=== PATIENT | female | born 1995 | race African-American/Black ===

== ENCOUNTER 2016-10-23 15:15 | Emergency (ER) | payer MEDICAID ==
--- NOTE | 2016-10-23 16:16 | EDPHY ---
H & P Stated Complaint: SI Time Seen by Provider: 10/23/16 15:32 HPI/ROS: CHIEF COMPLAINT: Increasing depression, suicidal ideation HISTORY OF PRESENT ILLNESS: 21-year-old female history diagnosed depression, history of suicide attempts x6 in the past, in the ER voluntarily via private vehicle complaining of increasing depression thoughts of suicide for the past 5 days. Has not been attending classes. Plan is either to lacerated her wrists or [place]. She does not own a gun or have access to a gun. She denies alcohol or drug use. Denies current suicide attempt. Denies hallucination. PRIMARY CARE PROVIDER: REVIEW OF SYSTEMS: A ten point review of systems was performed and is negative with the exception of the items mentioned in the HPI PAST MEDICAL & SURGICAL HISTORY: Depression. Prior suicide attempt. SOCIAL HISTORY: [employer] [facility] [employer] PHYSICAL EXAM (Prior to examination, patient consented to physical exam, hands were washed and my usual and customary physical exam procedures followed) 1) GENERAL: Well-developed, well-nourished, alert and oriented. Depressed, flat affect . 2) HEAD: Normocephalic, atraumatic 3) HEENT: Pupils equal, round, reactive to light bilaterally. Sclera anicteric. 4) NECK: Full range of motion, no meningeal signs. 5) LUNGS: Clear auscultation bilaterally, no wheezes, no rhonchi, no retractions. 6) HEART: Regular rate and rhythm, no murmur, no heave, no gallop. 7) ABDOMEN: No guarding, no rebound, no focal tendernessn, 8) MUSCULOSKELETAL: Moving all extremities, no focal areas of tenderness, no obvious trauma. No peripheral edema or discoloration. 9) BACK: , no visual or palpable abnormality. 10) SKIN: No rash, no petechiae. 11) Psychiatric: Patient is oriented X 3, there is no agitation. She has calmed cooperative. She has a depressed, flat affect and is tearful. DIFFERENTIAL DIAGNOSIS: no particular including but not limited to depression, sesar, psychosis, suicidal ideation, homicidal ideation - Personal History LMP (Females 10-55): 8-14 Days Ago Current Tetanus/Diphtheria Vaccine: Unsure Current Tetanus Diphtheria and Acellular Pertussis (TDAP): Unsure Tetanus Vaccine Date: < 10 YEARS - Medical/Surgical History Hx Asthma: Yes Hx Chronic Respiratory Disease: No Hx Diabetes: No Hx Cardiac Disease: No Hx Renal Disease: No Hx Cirrhosis: No Hx Alcoholism: No Hx HIV/AIDS: No Hx Splenectomy or Spleen Trauma: No Other PMH: depression anxiety ovarian cyst - Social History Smoking Status: Never smoked Constitutional: Initial Vital Signs Temperature (C) 36.8 C 10/23/16 15:16 Heart Rate 106 H 10/23/16 15:16 Respiratory Rate 16 10/23/16 15:16 Blood Pressure 109/71 10/23/16 15:16 O2 Sat (%) 96 10/23/16 15:16 O2 Delivery Mode Room Air Allergies/Adverse Reactions: No Known Allergies Allergy (Unverified 08/19/16 10:16) Home Medications: Medication Instructions Recorded Bcp 11/12/14 Ibuprofen [Motrin (*)] 800 mg PO Q6 #15 tab 08/19/16 Zoloft 08/19/16 Medical Decision Making ED Course/Re-evaluation: 4:15 p.m.: Patient in the ER voluntarily. She has been placed on M1 hold as I thinks she presents an imminent danger to herself with prior history of suicide attempt, currently endorsing suicidal ideation with plan. 8:48 p.m.: Mental health turkey pinner has evaluated the patient. Patient has contracted for safety and feels the M1 can be vacated. Patient can follow up with [facility]. Patient does not endorse suicidal homicidal ideation. - Data Points Laboratory Results: Laboratory Results 10/23/16 15:56 10/23/16 15:56 10/23/16 10/23/16 15:56 15:49 WBC 7.05 10^3/uL (3.80-9.50) RBC 4.82 10^6/uL (4.18-5.33) Hgb 14.5 g/dL (12.6-16.3) Hct 42.8 % (38.0-47.0) MCV 88.8 fL (81.5-99.8) MCH 30.1 pg (27.9-34.1) MCHC 33.9 g/dL (32.4-36.7) RDW 12.7 % (11.5-15.2) Plt Count 332 10^3/uL (150-400) MPV 9.4 fL (8.7-11.7) Neut % (Auto) 72.2 % (39.3-74.2) Lymph % (Auto) 10.2 L % (15.0-45.0) [place] % (Auto) 7.1 % (4.5-13.0) Eos % (Auto) 9.8 H % (0.6-7.6) Baso % (Auto) 0.6 % (0.3-1.7) Nucleat RBC Rel Count 0.0 % (0.0-0.2) Absolute Neuts (auto) 5.09 10^3/uL (1.70-6.50) Absolute Lymphs (auto) 0.72 L 10^3/uL (1.00-3.00) Absolute Monos (auto) 0.50 10^3/uL (0.30-0.80) Absolute Eos (auto) 0.69 H 10^3/uL (0.03-0.40) Absolute Basos (auto) 0.04 10^3/uL (0.02-0.10) Absolute Nucleated RBC 0.00 10^3/uL (0-0.01) Immature Gran % 0.1 % (0.0-1.1) Immature Gran # 0.01 10^3/uL (0.00-0.10) Sodium 139 mEq/L (134-144) Potassium 4.2 mEq/L (3.5-5.2) Chloride 102 mEq/L (97-110) Carbon Dioxide 24 mEq/l (22-31) Anion Gap 13 mEq/L (8-16) BUN 12 mg/dL (7-23) Creatinine 0.8 mg/dL (0.6-1.0) Estimated GFR > 60 Glucose 107 H mg/dL (70-100) Calcium 10.0 mg/dL (8.5-10.4) Beta HCG, Qual NEGATIVE Salicylates < 1.0 L mg/dL (2.0-20.0) Urine Opiates Screen Cancelled Acetaminophen < 10 L mcg/mL (10.0-30.0) Urine Barbiturates Cancelled Ur Phencyclidine Scrn Cancelled Ur Amphetamine Screen NEGATIVE (NEGATIVE) Ur Amphetamines Screen Cancelled U Benzodiazepines Scrn Cancelled Urine Cocaine Screen Cancelled U Marijuana (THC) Screen Cancelled Ethyl Alcohol < 10 mg/dL (0-10) Departure - Departure Disposition: Home, Routine, Self-Care Clinical Impression: Severe major depression Condition: Good Instructions: Depression (ED) Additional Instructions: Call 911 if you have thoughts of hurting yourself Referrals: [facility] [Outside] - 1 day without fail
[2016-10-23 16:27] LABS: % IMMATURE GRANULYOCYTES 0.1 % (0.0-1.1); ABSOLUTE IMMATURE GRANULOCYTES 0.01 10^3/uL (0.00-0.10); ADD DIFF? NO; ADD MORPH? NO; ADD SCAN? NO; ATYPICAL LYMPHOCYTE FLAG 10 (0-99); FRAGMENT RBC FLAG 0 (0-99); HEMATOCRIT 42.8 % (38.0-47.0); HEMOGLOBIN 14.5 g/dL (12.6-16.3); LEFT SHIFT FLG 0 (0-99); LIPEMIA HEMOLYSIS FLAG 90 (0-99); MEAN CELL HEMOGLOBIN 30.1 pg (27.9-34.1); MEAN CELL HEMOGLOBIN CONCENTR. 33.9 g/dL (32.4-36.7); MEAN CELL VOLUME 88.8 fL (81.5-99.8); MEAN PLATELET VOLUME 9.4 fL (8.7-11.7); PLATELET CLUMPS FLAG 0 (0-99); PLATELET COUNT 332 10^3/uL (150-400); RED BLOOD CELL COUNT 4.82 10^6/uL (4.18-5.33); RED CELL DISTRIBUTION WIDTH 12.7 % (11.5-15.2)
[2016-10-23 16:44] LABS: ANION GAP 13 mEq/L (8-16); CARBON DIOXIDE 24 mEq/l (22-31); CHLORIDE 102 mEq/L (97-110); CREATININE 0.8 mg/dL (0.6-1.0); ETHANOL SERUM < 10 mg/dL (0-10); GLOMERULAR FILTRATION RATE > 60; GLUCOSE 107 mg/dL (70-100); POTASSIUM 4.2 mEq/L (3.5-5.2); SALICYLATE < 1.0 mg/dL (2.0-20.0); SODIUM 139 mEq/L (134-144)
[2016-10-23 21:33] VITALS: BP 109/85; PULSE 85; RESP 18; TEMP 99; O2SAT 95
== END 2016-10-23 21:34 | disposition home or self-care (01) ==
DX: F32.2 Major depressive disorder, single episode, severe without psychotic features (principal); J45.909 Unspecified asthma, uncomplicated
CPT/HCPCS: 80305; G0480

== ENCOUNTER 2016-12-20 17:37 | Emergency (ER) | payer MEDICAID ==
[2016-12-20] MEDS ORDERED: IBUPROFEN 600 MG TAB PO ONE (17:46)
[2016-12-20] MEDS ORDERED: IBUPROFEN 200 MG TAB PO ONE (17:48)
[2016-12-20] MEDS ORDERED: NS 1,700 ML IV ONE (17:49)
--- NOTE | 2016-12-20 17:49 | EDPHY ---
H & P Stated Complaint: FLU LIKE SYMPTOMS N/V/D COUGH AND FEVER - Personal History LMP (Females 10-55): Now Current Tetanus/Diphtheria Vaccine: Yes Tetanus Vaccine Date: < 10 YEARS - Medical/Surgical History Hx Asthma: Yes Hx Chronic Respiratory Disease: No Hx Diabetes: No Hx Cardiac Disease: No Hx Renal Disease: No Hx Cirrhosis: No Hx Alcoholism: No Hx HIV/AIDS: No Hx Splenectomy or Spleen Trauma: No Other PMH: depression anxiety ovarian cyst - Social History Smoking Status: Never smoked Time Seen by Provider: 12/20/16 17:43 HPI/ROS: CHIEF COMPLAINT: flu-like symptoms x3 days HISTORY OF PRESENT ILLNESS: 21-year-old immunocompetent female, history depression, no influenza vaccination, complaining of 3 days of sore throat, myalgia, nonproductive cough, nausea without abdominal pain, no diarrhea overall flu-like symptoms. using albuterol meter dose inhaler more than usual. Denies: Nuchal rigidity, headache, photophobia, back or flank pain, urinary complaint, rash, urinary abnormality, abdominal pain. The patient would also like me to evaluate a tender right vaginal area present for the past 1 months. This is described as a tender "ball like lesion" in her right labial region. Tender to palpation. REVIEW OF SYSTEMS: A ten point review of systems was performed and is negative with the exception of the items mentioned in the HPI PAST MEDICAL & SURGICAL HISTORY: depression SOCIAL HISTORY: nonsmoker PHYSICAL EXAM (Prior to examination, patient consented to physical exam, hands were washed and my usual and customary physical exam procedures followed) 1) GENERAL: Well-developed, well-nourished, alert and oriented. Appears to be in no acute distress. 2) HEAD: Normocephalic, atraumatic 3) HEENT: Pupils equal, round, reactive to light bilaterally. Sclera anicteric. No injection. Nasopharynx, oropharynx, clear, no lesions. Posterior oropharynx is erythematous without tonsillar enlargement or exudate. No pointing of the uvula. No asymmetry. No hot potato voice. No trismus or drooling. Ears bilaterally with normal tympanic membranes. 4) NECK: Full range of motion, no meningeal signs. 5) LUNGS: Mild end-expiratory wheeze bilaterally no rhonchi, no retractions. No accessory muscle use. Speaking full sentences 6) HEART: Regular rate and rhythm, no murmur, no heave, no gallop. 7) ABDOMEN: No guarding, no rebound, no focal tenderness, negative McBurney's, negative Hi's, negative Rovsing's, negative peritoneal sign, I am unable to elicit any abdominal pain 8) MUSCULOSKELETAL: Moving all extremities, no focal areas of tenderness, no obvious trauma. No peripheral edema or discoloration. 9) BACK: No CVA tenderness, no midline vertebral tenderness, no fluctuance, no step-off, no obvious trauma, no visual or palpable abnormality. 10) SKIN: No rash, no petechiae. 11) Psychiatric: Patient is oriented X 3, there is no agitation. 12) PELVIC (with female tech Perri Boswell at bedside): Patient currently on her menstrual period. Patient removed her tampon prior to exam. Normal female external genitalia, no lesions visualized. No signs of Bartholin cyst. No lesions. No vesicles. She has mild tenderness at approximately the 7 o'clock position but I do not visualize or palpate any abnormality beyond very mild tenderness. There is no induration. No discoloration. Speculum examination reveals no vaginal bleeding or discharge, normal vaginal rugae, os closed, DIFFERENTIAL DIAGNOSIS: in no particular including but not limited to meningitis, influenza, viral syndrome (Alma,Otis Brooke) Constitutional: Initial Vital Signs Temperature (C) 38.2 C 12/20/16 17:40 Heart Rate 128 H 12/20/16 17:40 Respiratory Rate 28 H 12/20/16 17:40 Blood Pressure 106/71 12/20/16 17:40 O2 Sat (%) 94 12/20/16 17:40 O2 Delivery Mode Room Air Allergies/Adverse Reactions: No Known Allergies Allergy (Verified 12/20/16 17:39) Home Medications: Medication Instructions Recorded Bcp 11/12/14 Ibuprofen [Motrin (*)] 800 mg PO Q6 #15 tab 08/19/16 Zoloft 08/19/16 AZITHROMYCIN [Z-PACK] 500 mg PO DAILY #1 packet 12/20/16 Albuterol [Proventil Inhaler HFA 1 - 2 puffs IH Q4PRN PRN #1 mdi 12/20/16 (*)] Benzonatate [Tessalon Pearles (RX)] 200 mg PO TID PRN #15 cap 12/20/16 Cephalexin [Keflex (RX)] 500 mg PO TID 6 Days 12/20/16 Ondansetron Odt [Zofran Odt] 4 mg PO Q4PRN PRN #10 tab 12/20/16 Medical Decision Making - Diagnostics Imaging: Imaging Impressions Chest X-Ray 12/20/16 17:43 Impression: Minimal left basilar atelectasis. No pneumonia or effusion. Images reviewed by myself (Otis Marquez) ED Course/Re-evaluation: 6:50 p.m. Patient has been re-evaluated with serial exams most recently at this time. she received DuoNeb treatment wheezing has resolved and feet feels subjectively improved. She is feeling improvement after ibuprofen, IV hydration. She remains with no meningeal signs, she is answering questions appropriately, no abdominal pain or guarding. I think that meningitis is less than likely in this patient at this time. I do not think lumbar puncture currently indicated. Doubt encephalitis. Doubt pulmonary embolus. No evidence of definitive pneumonia on chest x-ray. she also complained of pre- hospital nausea, none currently. I re-examined her abdomen and she remains nontender with no McBurney's point pain, negative Hi's. I think that acute surgical abdominal pathology such as acute appendicitis or acute cholecystitis is less than likely in this patient. I do not think that imaging studies of her abdomen currently indicated. She remains tachycardic after DuoNeb treatment which I think is more than likely secondary to her repeated albuterol meter dose usage and her current DuoNeb treatment. Regarding the patient's complaints of 1 month of right sided vaginal pain at approximately the 7 o'clock position, on exam there are no palpable or or visual abnormalities I can appreciate such as Bartholin cyst. I recommend she follow up with her primary care provider Hermilo. In the meantime should she develop any palpable mass new or worsening symptoms she needs to return to the ER. Patient feels comfortable with this plan of care. All questions and concerns addressed by myself. Usual and customary discharge precautions and instructions provided. (Otis Marquez) Other Provider: The patient was evaluated and managed by the Physician Meat Grader/ Nurse Practitioner. [I discussed the patient's presentation and course with the midlevel provider with them and agree with the evaluation.] My co-signature indicates that I have reviewed this chart and I agree with the findings and plan of care as documented. I am the secondary supervising physician. I was asked by the nursing staff to reassess the patient after she continues to have tachycardia following her 2nd L of normal saline. Patient received additional normal saline. She did provide a urine sample which has positive nitrates and leukocyte esterase and trace bacteria. She has few symptoms to suggest urinary tract infection and is feeling better after her 3rd L of normal saline. She was given a prescription for Keflex and advised that if her urinary cultures were negative she should stop taking this. (Karolina Vo) - Data Points Laboratory Results: Laboratory Results 12/20/16 17:45 12/20/16 17:45 12/20/16 12/20/16 12/20/16 Unknown 20:10 17:50 WBC RBC Hgb Hct MCV MCH MCHC RDW Plt Count MPV Neut % (Auto) Lymph % (Auto) [place] % (Auto) Eos % (Auto) Baso % (Auto) Nucleat RBC Rel Count Absolute Neuts (auto) Absolute Lymphs (auto) Absolute Monos (auto) Absolute Eos (auto) Absolute Basos (auto) Absolute Nucleated RBC Immature Gran % Immature Gran # PT INR APTT VBG Lactic Acid Sodium Potassium Chloride Carbon Dioxide Anion Gap BUN Creatinine Estimated GFR Glucose Calcium Total Bilirubin Beta HCG, Qual Urine Color YELLOW Urine Appearance HAZY Urine pH 7.0 (5.0-7.5) Ur Specific [place] 1.006 (1.002-1.030) Urine Protein NEGATIVE (NEGATIVE) Urine Ketones 1+ H (NEGATIVE) Urine Blood 3+ H (NEGATIVE) Urine Nitrate POSITIVE H (NEGATIVE) Urine Bilirubin NEGATIVE (NEGATIVE) Urine Urobilinogen NEGATIVE EU EU (0.2-1.0) Ur Leukocyte Esterase NEGATIVE (NEGATIVE) Urine RBC 1-3 /hpf /hpf (0-3) Urine WBC 3-5 /hpf H /hpf (0-3) Ur Epithelial Cells TRACE /lpf /lpf (NONE-1+) Urine Bacteria TRACE /hpf H /hpf (NONE SEEN) Urine Mucus TRACE /lpf /lpf (NONE-1+) Urine Glucose NEGATIVE (NEGATIVE) Monoscreen Influenza Typ A,B (DFA) NEGATIVE FOR FLU (NEGATIVE) Group A Strep Screen Group A Strep DNA Pending 12/20/16 12/20/16 12/20/16 17:50 17:45 17:45 WBC RBC Hgb Hct MCV MCH MCHC RDW Plt Count MPV Neut % (Auto) Lymph % (Auto) [place] % (Auto) Eos % (Auto) Baso % (Auto) Nucleat RBC Rel Count Absolute Neuts (auto) Absolute Lymphs (auto) Absolute Monos (auto) Absolute Eos (auto) Absolute Basos (auto) Absolute Nucleated RBC Immature Gran % Immature Gran # PT INR APTT VBG Lactic Acid Sodium 137 mEq/L mEq/L (134-144) Potassium 3.8 mEq/L mEq/L (3.5-5.2) Chloride 104 mEq/L mEq/L (97-110) Carbon Dioxide 19 mEq/l L mEq/l (22-31) Anion Gap 14 mEq/L mEq/L (8-16) BUN 9 mg/dL mg/dL (7-23) Creatinine 0.7 mg/dL mg/dL (0.6-1.0) Estimated GFR > 60 Glucose 93 mg/dL mg/dL (70-100) Calcium 9.5 mg/dL mg/dL (8.5-10.4) Total Bilirubin 0.4 mg/dL mg/dL (0.1-1.4) Beta HCG, Qual NEGATIVE Urine Color Urine Appearance Urine pH Ur Specific [place] Urine Protein Urine Ketones Urine Blood Urine Nitrate Urine Bilirubin Urine Urobilinogen Ur Leukocyte Esterase Urine RBC Urine WBC Ur Epithelial Cells Urine Bacteria Urine Mucus Urine Glucose Monoscreen NEGATIVE (NEGATIVE) Influenza Typ A,B (DFA) Group A Strep Screen NEGATIVE (NEGATIVE) Group A Strep DNA 12/20/16 12/20/16 12/20/16 17:45 17:45 17:45 WBC 6.85 10^3/uL 10^3/uL (3.80-9.50) RBC 4.78 10^6/uL 10^6/uL (4.18-5.33) Hgb 14.2 g/dL g/dL (12.6-16.3) Hct 40.8 % % (38.0-47.0) MCV 85.4 fL fL (81.5-99.8) MCH 29.7 pg pg (27.9-34.1) MCHC 34.8 g/dL g/dL (32.4-36.7) RDW 13.3 % % (11.5-15.2) Plt Count 322 10^3/uL 10^3/uL (150-400) MPV 9.3 fL fL (8.7-11.7) Neut % (Auto) 73.2 % % (39.3-74.2) Lymph % (Auto) 16.6 % % (15.0-45.0) [place] % (Auto) 8.9 % % (4.5-13.0) Eos % (Auto) 0.7 % % (0.6-7.6) Baso % (Auto) 0.3 % % (0.3-1.7) Nucleat RBC Rel Count 0.0 % % (0.0-0.2) Absolute Neuts (auto) 5.01 10^3/uL 10^3/uL (1.70-6.50) Absolute Lymphs (auto) 1.14 10^3/uL 10^3/uL (1.00-3.00) Absolute Monos (auto) 0.61 10^3/uL 10^3/uL (0.30-0.80) Absolute Eos (auto) 0.05 10^3/uL 10^3/uL (0.03-0.40) Absolute Basos (auto) 0.02 10^3/uL 10^3/uL (0.02-0.10) Absolute Nucleated RBC 0.00 10^3/uL 10^3/uL (0-0.01) Immature Gran % 0.3 % % (0.0-1.1) Immature Gran # 0.02 10^3/uL 10^3/uL (0.00-0.10) PT 12.9 SEC SEC (12.0-15.0) INR 0.98 (0.83-1.16) APTT 28.0 SEC SEC (23.0-38.0) VBG Lactic Acid 1.7 mmol/L mmol/L (0.7-2.1) Sodium Potassium Chloride Carbon Dioxide Anion Gap BUN Creatinine Estimated GFR Glucose Calcium Total Bilirubin Beta HCG, Qual Urine Color Urine Appearance Urine pH Ur Specific [place] Urine Protein Urine Ketones Urine Blood Urine Nitrate Urine Bilirubin Urine Urobilinogen Ur Leukocyte Esterase Urine RBC Urine WBC Ur Epithelial Cells Urine Bacteria Urine Mucus Urine Glucose Monoscreen Influenza Typ A,B (DFA) Group A Strep Screen Group A Strep DNA Medications Given: Discontinued Medications Albuterol/Ipratropium (Duoneb) 3 ml IH EDNOW ONE Stop: 12/20/16 18:43 Last Admin: 12/20/16 18:42 Dose: 3 ml Cephalexin (Keflex 500 Mg Prepack#4) 1 btl TAKEHOME EDNOW ONE PRN Reason: Protocol Stop: 12/20/16 20:48 Last Admin: 12/20/16 21:02 Dose: 1 btl Sodium Chloride (Ns) 1,700 mls @ 3,400 mls/hr 30 ml/kg infuse over 30 min ( 1700 ml) IV EDNOW ONE Stop: 12/20/16 18:18 Last Admin: 12/20/16 18:09 Dose: 1,700 mls Sodium Chloride (Ns) 1,000 mls @ 0 mls/hr IV ONCE ONE PRN Reason: Wide Open Stop: 12/20/16 20:19 Last Admin: 12/20/16 19:30 Dose: 1,000 mls Ibuprofen (Motrin) 600 mg PO EDNOW ONE Stop: 12/20/16 17:47 Last Admin: 12/20/16 17:49 Dose: Not Given Ibuprofen (Motrin) 800 mg PO EDNOW ONE Stop: 12/20/16 17:49 Last Admin: 12/20/16 17:55 Dose: 800 mg Ondansetron HCl (Zofran) 4 mg IVP EDNOW ONE Stop: 12/20/16 20:19 Last Admin: 12/20/16 20:19 Dose: 4 mg Departure - Departure Disposition: Home, Routine, Self-Care Clinical Impression: Influenza-like illness, Possible urinary tract infection Condition: Good Instructions: Cephalexin (By mouth), Upper Respiratory Infection (ED) Additional Instructions: Return to the emergency department immediately if you develop new or worsening symptoms, if you develop chest pain, shortness of breath, new or worsening vaginal pain or any other symptoms that concern you. Recommend you follow up with her primary care provider regarding your current flu-like symptoms as well as your pain in the genitalia. Your urine may have a urinary tract infection. I have given you a prescription for Keflex in order to treat this. If the urine culture does not return positive, you may stop taking the Keflex. Please call the emergency department in 48 hours to find out the results of the culture. Please do take the azithromycin for upper respiratory infection. You have also been given a prescription for Zofran to use as needed for nausea. You may take Tessalon Perles if needed for cough. Referrals: [facility] [Outside] - 12/23/16 Prescriptions: Albuterol [Proventil Inhaler HFA (*)] 1 - 2 puffs IH Q4PRN PRN #1 mdi PRN Reason: Cough, Moderate AZITHROMYCIN [Z-PACK] 500 mg PO DAILY #1 packet Benzonatate [Tessalon Pearles (RX)] 200 mg PO TID PRN #15 cap PRN Reason: Cough, Moderate Cephalexin [Keflex (RX)] 500 mg PO TID 6 Days Ondansetron Odt [Zofran Odt] 4 mg PO Q4PRN PRN #10 tab PRN Reason: Nausea
[2016-12-20 17:58] LABS: % IMMATURE GRANULYOCYTES 0.3 % (0.0-1.1); ABSOLUTE IMMATURE GRANULOCYTES 0.02 10^3/uL (0.00-0.10); ADD DIFF? NO; ADD MORPH? NO; ADD SCAN? NO; ATYPICAL LYMPHOCYTE FLAG 70 (0-99); FRAGMENT RBC FLAG 0 (0-99); HEMATOCRIT 40.8 % (38.0-47.0); HEMOGLOBIN 14.2 g/dL (12.6-16.3); LEFT SHIFT FLG 0 (0-99); LIPEMIA HEMOLYSIS FLAG 90 (0-99); MEAN CELL HEMOGLOBIN 29.7 pg (27.9-34.1); MEAN CELL HEMOGLOBIN CONCENTR. 34.8 g/dL (32.4-36.7); MEAN CELL VOLUME 85.4 fL (81.5-99.8); MEAN PLATELET VOLUME 9.3 fL (8.7-11.7); PLATELET CLUMPS FLAG 0 (0-99); PLATELET COUNT 322 10^3/uL (150-400); RED BLOOD CELL COUNT 4.78 10^6/uL (4.18-5.33); RED CELL DISTRIBUTION WIDTH 13.3 % (11.5-15.2)
[2016-12-20 18:09] LABS: ANION GAP 14 mEq/L (8-16); BILIRUBIN,TOTAL 0.4 mg/dL (0.1-1.4); CALCIUM 9.5 mg/dL (8.5-10.4); CARBON DIOXIDE 19 mEq/l (22-31); CHLORIDE 104 mEq/L (97-110); CREATININE 0.7 mg/dL (0.6-1.0); GLOMERULAR FILTRATION RATE > 60; GLUCOSE 93 mg/dL (70-100); POTASSIUM 3.8 mEq/L (3.5-5.2); SODIUM 137 mEq/L (134-144)
[2016-12-20 18:10] LABS: BHCG-QUALITATIVE NEGATIVE; MONO TEST NEGATIVE (NEGATIVE)
[2016-12-20 18:12] LABS: INR 0.98 (0.83-1.16); PROTIME(PATIENT) 12.9 SEC (12.0-15.0)
[2016-12-20] MEDS ORDERED: IPRATROPIUM/ALBUTEROL 3 ML DEYVIAL ONE (18:39)
[2016-12-20] MEDS ORDERED: IPRATROPIUM/ALBUTEROL 3 ML DEYVIAL IH ONE (18:42)
[2016-12-20 18:44] VITALS: RESP 20
--- NOTE | 2016-12-20 19:52 | CPEKG ---
Heart Rate: 118 RR Interval: 508 P-R Interval: 152 QRSD Interval: 76 QT Interval: 320 QTC Interval: 449 P [place]: 44 QRS [place]: 57 T Wave [place]: -57 EKG Severity - BORDERLINE ECG - EKG Impression: SINUS TACHYCARDIA EKG Impression: BORDERLINE T ABNORMALITIES, DIFFUSE LEADS Electronically Signed By: Karolina oV 21-Dec-2016 00:43:19
[2016-12-20] MEDS ORDERED: ONDANSETRON 4 MG/2 ML VIAL ONE (19:59)
[2016-12-20] MEDS ORDERED: ONDANSETRON 4 MG/2 ML VIAL IVP ONE (20:18)
[2016-12-20] MEDS ORDERED: NS 1,000 ML IV ONE (20:18)
[2016-12-20 20:23] LABS: COLOR YELLOW; LEUKOCYTE ESTERASE,URINE NEGATIVE (NEGATIVE); NITRITE,URINE POSITIVE (NEGATIVE)
[2016-12-20 20:32] LABS: BACTERIA TRACE /hpf (NONE SEEN); MUCUS TRACE /lpf (NONE-1+)
[2016-12-20] MEDS ORDERED: CEPHALEXIN 500MG PREPACK#4 BTL TAKEHOME ONE (20:47)
[2016-12-20 21:04] VITALS: BP 109/63; PULSE 114; TEMP 99.3; O2SAT 95
== END 2016-12-20 21:04 | disposition home or self-care (01) ==
DX: J11.1 Influenza due to unidentified influenza virus with other respiratory manifestations (principal); J45.909 Unspecified asthma, uncomplicated
CPT/HCPCS: 96374; J2405

== ENCOUNTER 2017-07-05 09:00 | Emergency (ER) | payer MEDICAID ==
[2017-07-05 09:04] VITALS: RESP 16; TEMP 99.7
[2017-07-05] MEDS ORDERED: DEXAMETHASONE 4 MG TAB PO ONE (09:23)
[2017-07-05] MEDS ORDERED: IPRATROPIUM/ALBUTEROL 3 ML DEYVIAL IH ONE ×2 (09:23)
--- NOTE | 2017-07-05 09:39 | EDPHY ---
General Time Seen by Provider: 07/05/17 09:09 Narrative: CHIEF COMPLAINT: Chest congestion, cough, "sick for a week" HISTORY OF PRESENT ILLNESS: Patient complains of being "sick for a week." She complains of cough, congestion, sore throat, chest pressure, painful cough, malaise, myalgia, fever. Symptoms have been present for a week. She feels as though it is the flu but is here because she is not getting any better. She has no chest pain at rest. She has no neck pain or stiffness. Occasional headache. Two episodes of vomiting with mild nausea. No abdominal pain. No urinary complaints. No other associated complaints. No improvement with albuterol inhalers or [id number] medications including ibuprofen, Robitussin, TheraFlu. No other modifying factors. REVIEW OF SYSTEMS: Ten systems reviewed and are negative unless otherwise noted in the HPI PCP: Hermilo physician SPECIALISTS: None PAST MEDICAL HISTORY: Asthma PAST SURGICAL HISTORY: Collar bone open reduction internal fixation SOCIAL HISTORY: Nonsmoker. Occasional alcohol. Occasional marijuana FAMILY HISTORY: Noncontributory EXAMINATION General Appearance: Alert, no distress Head: normocephalic, atraumatic Eyes: Pupils equal and round, no conjunctival pallor or injection ENT, Mouth: Mucous membranes moist. Uvula midline. Airway patent. Mild erythema. No asymmetry of the tonsils Neck: Normal inspection, supple, non-tender Respiratory: Coarse wheezing and rhonchi throughout. No retractions or distress. No consolidation. Cardiovascular: Tachycardic rate. Regular rhythm. No murmur. Gastrointestinal: Abdomen is soft and nontender Back: non-tender, no bony abnormalities Neurological: A&O, nonfocal, normal gait Skin: Warm and dry, no rash no petechiae or purpura Extremities: Nontender, no pedal edema Psychiatric: Mood and affect normal DIFFERENTIAL DIAGNOSES: Including but not limited to influenza, asthma exacerbation, pneumonia, bronchitis, lower respiratory infection, upper respiratory infection MDM: 9:25 a.m. Multitude of complaints consistent with influenza and asthma exacerbation. She has significant wheezing and rhonchi. At check-in she was tachycardic with a normal oxygenation on room air. During my examination, she was 88-90% on room air. She does not appear to be in any acute distress. She has no labored breathing or tachypnea at this time. I have ordered a DuoNeb treatment x2. I have ordered influenza swab. Will place her on pulse oximetry and 2 L of oxygen. Recheck after DuoNeb treatment. 10:55 a.m. Patient re-evaluated at this time. She has received 2 DuoNeb treatments. The x -ray, as read by me reveals no acute pneumonia or findings. She says that she is feeling much better. Oxygenation is above 90% on room air. Heart rate is still 120 to 130 beats per minute. I will discuss with attending physician. 11:15 a.m. I discussed the case with Dr. Youssef. We are in agreement that although clinically, she does appear to just have a bronchitis or asthma exacerbation, her heart rate warranted further workup. I discussed this with her as well. She agrees to proceed with IV placement, laboratory studies included a D-dimer. I will also obtain an EKG. Plan for IV fluid resuscitation and monitoring. 12:00 p.m. Patient re-evaluated. She remains tachycardic but is feeling better. Laboratory studies are pending. 1:00 p.m. Patient re-evaluated. Remains tachycardic. Laboratory studies thus far reveal leukocytosis. No chemistry. D-dimer and troponin are pending. 1:30 p.m. Troponin negative. D-dimer negative. Patient has been re-evaluated by myself and Dr. Youssef. We are in agreement that the patient is stable for discharge home despite this tachycardia. We discussed strict ED precautions with her. We discussed short course of cough medicine. One more dose of steroids tomorrow morning. Zithromax antibiotic empirically. Refill of albuterol inhaler. She will contact her primary care physician Friday morning. If unable to see her primary care physician. I would like her to return to the emergency department at that time. Return sooner for worsening symptoms as discussed. She is comfortable this plan. She is feeling much better and she would like to be discharged home. - Diagnostics Imaging Results: Imaging Impressions Chest X-Ray 07/05/17 09:45 Impression: 1. Bronchitis/airways disease. 2. No definite focal pneumonia. - History Smoking Status: Never smoked - Objective Vital Signs: Initial Vital Signs Temperature (C) 99.7 F 07/05/17 09:02 Heart Rate 120 H 07/05/17 09:02 Respiratory Rate 16 07/05/17 09:02 Blood Pressure 102/73 07/05/17 09:02 O2 Sat (%) 95 07/05/17 09:02 O2 Delivery Mode Room Air O2 (L/minute) 2 Allergies/Adverse Reactions: No Known Allergies Allergy (Verified 12/20/16 17:39) Home Medications: Medication Instructions Recorded Bcp 11/12/14 Ibuprofen [Motrin (*)] 800 mg PO Q6 #15 tab 08/19/16 Zoloft 08/19/16 AZITHROMYCIN [Z-PACK] 500 mg PO DAILY #1 packet 12/20/16 Albuterol [Proventil Inhaler HFA 1 - 2 puffs IH Q4PRN PRN #1 mdi 12/20/16 (*)] Benzonatate [Tessalon Pearles (RX)] 200 mg PO TID PRN #15 cap 12/20/16 Cephalexin [Keflex (RX)] 500 mg PO TID 6 Days cap 12/20/16 Ondansetron Odt [Zofran Odt] 4 mg PO Q4PRN PRN #10 tab 12/20/16 Acetaminophen/Codeine 300/30Mg 1 each PO Q6 PRN #15 tab 07/05/17 [Tylenol #3 (*)] Albuterol [Proventil Inhaler HFA 1 - 2 puffs IH Q4H PRN #1 mdi 07/05/17 (*)] Azithromycin [Zithromax] 250 mg PO DAILY #6 tab 07/05/17 Dexamethasone [Decadron 4 MG (*)] 8 mg PO DAILY #2 tab 07/05/17 Laboratory Results: Laboratory Results 07/05/17 11:35 07/05/17 11:35 07/05/17 07/05/17 07/05/17 11:35 11:35 11:35 WBC RBC Hgb Hct MCV MCH MCHC RDW Plt Count MPV Neut % (Auto) Lymph % (Auto) [place] % (Auto) Eos % (Auto) Baso % (Auto) Nucleat RBC Rel Count Absolute Neuts (auto) Absolute Lymphs (auto) Absolute Monos (auto) Absolute Eos (auto) Absolute Basos (auto) Absolute Nucleated RBC Immature Gran % Immature Gran # D-Dimer 0.35 ug/mLFEU ug/mLFEU (0.00-0.50) Sodium 139 mEq/L mEq/L (134-144) Potassium 3.8 mEq/L mEq/L (3.5-5.2) Chloride 104 mEq/L mEq/L (97-110) Carbon Dioxide 20 mEq/l L mEq/l (22-31) Anion Gap 15 mEq/L mEq/L (8-16) BUN 9 mg/dL mg/dL (7-23) Creatinine 0.7 mg/dL mg/dL (0.6-1.0) Estimated GFR > 60 Glucose 106 mg/dL H mg/dL (70-100) Calcium 9.5 mg/dL mg/dL (8.5-10.4) Troponin I < 0.012 ng/mL ng/mL (0.000-0.034) Beta HCG, Qual NEGATIVE Nasal Influenza A PCR Nasal Influenza B PCR 07/05/17 07/05/17 11:35 09:40 WBC 14.63 10^3/uL H 10^3/uL (3.80-9.50) RBC 4.47 10^6/uL 10^6/uL (4.18-5.33) Hgb 13.7 g/dL g/dL (12.6-16.3) Hct 39.3 % % (38.0-47.0) MCV 87.9 fL fL (81.5-99.8) MCH 30.6 pg pg (27.9-34.1) MCHC 34.9 g/dL g/dL (32.4-36.7) RDW 14.0 % % (11.5-15.2) Plt Count 320 10^3/uL 10^3/uL (150-400) MPV 9.2 fL fL (8.7-11.7) Neut % (Auto) 88.2 % H % (39.3-74.2) Lymph % (Auto) 3.6 % L % (15.0-45.0) [place] % (Auto) 2.6 % L % (4.5-13.0) Eos % (Auto) 4.7 % % (0.6-7.6) Baso % (Auto) 0.5 % % (0.3-1.7) Nucleat RBC Rel Count 0.0 % % (0.0-0.2) Absolute Neuts (auto) 12.89 10^3/uL H 10^3/uL (1.70-6.50) Absolute Lymphs (auto) 0.53 10^3/uL L 10^3/uL (1.00-3.00) Absolute Monos (auto) 0.38 10^3/uL 10^3/uL (0.30-0.80) Absolute Eos (auto) 0.69 10^3/uL H 10^3/uL (0.03-0.40) Absolute Basos (auto) 0.08 10^3/uL 10^3/uL (0.02-0.10) Absolute Nucleated RBC 0.00 10^3/uL 10^3/uL (0-0.01) Immature Gran % 0.4 % % (0.0-1.1) Immature Gran # 0.06 10^3/uL 10^3/uL (0.00-0.10) D-Dimer Sodium Potassium Chloride Carbon Dioxide Anion Gap BUN Creatinine Estimated GFR Glucose Calcium Troponin I Beta HCG, Qual Nasal Influenza A PCR NEGATIVE FOR FLU A (NEGATIVE) Nasal Influenza B PCR NEGATIVE FOR FLU B (NEGATIVE) Medications Given: Discontinued Medications Albuterol/Ipratropium (Duoneb) 3 ml IH EDNOW ONE Stop: 07/05/17 09:24 Last Admin: 07/05/17 09:36 Dose: 3 ml Albuterol/Ipratropium (Duoneb) 3 ml IH EDNOW ONE Stop: 07/05/17 09:24 Last Admin: 07/05/17 10:08 Dose: 3 ml Dexamethasone (Decadron) 8 mg PO EDNOW ONE Stop: 07/05/17 09:24 Last Admin: 07/05/17 09:36 Dose: 8 mg Sodium Chloride (Ns) 1,000 mls @ 0 mls/hr IV EDNOW ONE; Wide Open PRN Reason: Protocol Stop: 07/05/17 11:15 Last Admin: 07/05/17 11:33 Dose: 1,000 mls Sodium Chloride (Ns) 1,000 mls @ 0 mls/hr IV EDNOW ONE; Wide Open PRN Reason: Protocol Stop: 07/05/17 11:15 Last Admin: 07/05/17 11:32 Dose: 1,000 mls Departure - Departure Disposition: Home, Routine, Self-Care Clinical Impression: Acute bronchitis Qualifiers: Bronchitis organism: unspecified organism Qualified Code(s): J20.9 - Acute bronchitis, unspecified Asthma without status asthmaticus Qualifiers: Asthma severity: mild Asthma persistence: intermittent Asthma complication type : with acute exacerbation Qualified Code(s): J45.21 - Mild intermittent asthma with (acute) exacerbation Condition: Good Instructions: Asthma (ED), Acute Bronchitis (ED), How to Use a Nebulizer (ED) Additional Instructions: 1. Cough medication as prescribed as needed 2. Steroid as prescribed to completion 3. Antibiotics as prescribed to completion 4. Follow up with primary care physician on Friday 5. Return for re-evaluation in 48 hours if unable to be seen by primary care physician 6. Strict ED precautions as discussed Referrals: DEJON HERNANDEZ [Other] - As per Instructions Stand Alone Forms: School Excuse, Work Excuse Prescriptions: Acetaminophen/Codeine 300/30Mg [Tylenol #3 (*)] 1 each PO Q6 PRN #15 tab PRN Reason: Pain, Mild Albuterol [Proventil Inhaler HFA (*)] 1 - 2 puffs IH Q4H PRN #1 mdi PRN Reason: Short Of Breath/Dyspnea Azithromycin [Zithromax] 250 mg PO DAILY #6 tab Dexamethasone [Decadron 4 MG (*)] 8 mg PO DAILY #2 tab
[2017-07-05 11:09] VITALS: PULSE 130
[2017-07-05] MEDS ORDERED: NS 1,000 ML IV ONE ×2 (11:14)
--- NOTE | 2017-07-05 11:41 | CPEKG ---
Heart Rate: 115 RR Interval: 522 P-R Interval: 132 QRSD Interval: 74 QT Interval: 344 QTC Interval: 476 P [place]: 51 QRS [place]: 47 T Wave [place]: 0 EKG Severity - BORDERLINE ECG - EKG Impression: SINUS TACHYCARDIA EKG Impression: BORDERLINE PROLONGED QT INTERVAL Electronically Signed By: Oren Youssef 05-Jul-2017 15:27:37
[2017-07-05 11:53] LABS: % IMMATURE GRANULYOCYTES 0.4 % (0.0-1.1); ABSOLUTE IMMATURE GRANULOCYTES 0.06 10^3/uL (0.00-0.10); ADD DIFF? NO; ADD MORPH? NO; ADD SCAN? NO; ATYPICAL LYMPHOCYTE FLAG 0 (0-99); FRAGMENT RBC FLAG 0 (0-99); HEMATOCRIT 39.3 % (38.0-47.0); HEMOGLOBIN 13.7 g/dL (12.6-16.3); LEFT SHIFT FLG 0 (0-99); LIPEMIA HEMOLYSIS FLAG 90 (0-99); MEAN CELL HEMOGLOBIN 30.6 pg (27.9-34.1); MEAN CELL HEMOGLOBIN CONCENTR. 34.9 g/dL (32.4-36.7); MEAN CELL VOLUME 87.9 fL (81.5-99.8); MEAN PLATELET VOLUME 9.2 fL (8.7-11.7); PLATELET CLUMPS FLAG 0 (0-99); PLATELET COUNT 320 10^3/uL (150-400); RED BLOOD CELL COUNT 4.47 10^6/uL (4.18-5.33)
[2017-07-05 12:14] LABS: ANION GAP 15 mEq/L (8-16); CALCIUM 9.5 mg/dL (8.5-10.4); CARBON DIOXIDE 20 mEq/l (22-31); CHLORIDE 104 mEq/L (97-110); CREATININE 0.7 mg/dL (0.6-1.0); GLOMERULAR FILTRATION RATE > 60; GLUCOSE 106 mg/dL (70-100); POTASSIUM 3.8 mEq/L (3.5-5.2); SODIUM 139 mEq/L (134-144)
[2017-07-05 12:26] LABS: TROPONIN I < 0.012 ng/mL (0.000-0.034)
[2017-07-05 14:36] VITALS: BP 118/80; O2SAT 93
== END 2017-07-05 14:34 | disposition home or self-care (01) ==
PROC: 3E0337Z Introduction of Electrolytic and Water Balance Substance into Peripheral Vein, Percutaneous Approach (ICD-10-PCS; principal; 2017-07-05)
DX: J20.9 Acute bronchitis, unspecified (principal); J45.21 Mild intermittent asthma with (acute) exacerbation; E86.9 Volume depletion, unspecified